=== PATIENT | male | born 1965 | race Caucasian/White ===

== ENCOUNTER 2021-01-24 22:41 | Emergency (ER) | payer OTHER ==
[~2021-01-24] VITALS: Ht 188 cm; Wt 73.8 kg
[2021-01-24] MEDS ORDERED: HYDROmorphone 1 MG/ML, 1ML INJ IV ONE (23:30)
[2021-01-24] MEDS ORDERED: LIDODERM 5% PATCH TD ONE ×2 (23:30→23:48)
[2021-01-24] MEDS ORDERED: DIAZEPAM 5 MG/ML, 2ML IV ONE (23:30)
[2021-01-24] MEDS ORDERED: PLEASE ENTER ALLERGIES MC SCH (23:45)
[2021-01-24] MEDS ORDERED: DIAZEPAM 5 MG/ML, 2ML ONE (23:47)
[2021-01-24] MEDS ORDERED: HYDROmorphone 2 MG/ML, 1ML ONE (23:47)
--- NOTE | 2021-01-25 00:25 | NUR ---
PT DENIES ANY RELIEF FROM MEDS. VSS. FAMILY AT BS. WILL CTM.
[2021-01-25] MEDS ORDERED: methylPREDNISolone SOD SUCC 125 MG/2 ML IVPush ONE (01:00)
[2021-01-25] MEDS ORDERED: methylPREDNISolone SOD SUCC 125 MG/2 ML ONE (01:06)
[2021-01-25] MEDS ORDERED: HYDROmorphone 1 MG/ML, 1ML INJ IV ONE (01:30)
[2021-01-25 01:34] VITALS: BP 116/71
[2021-01-25] MEDS ORDERED: HYDROmorphone 2 MG/ML, 1ML ONE (01:43)
--- NOTE | 2021-01-25 02:28 | NUR ---
pt educated on dc instructions, verbalized understanding. ambulatory to dc desk with steday gait
== END 2021-01-25 02:31 ==
LOC: ED 22:46
DX: M54.42 Lumbago with sciatica, left side (principal)
CPT/HCPCS: 72110; 96374; 96375; 96376; 99284; J1170; J2930; J3360